=== PATIENT | female | born 1985 | race Caucasian/White ===

== ENCOUNTER 2016-08-29 18:57 | Emergency (ER) | payer OTHER ==
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
[2016-08-29] MEDS ORDERED: CYCLOBENZAPRINE10 M1 PO (22:06)
[2016-08-29] MEDS ORDERED: IBUPROFEN800 M1 PO (22:06)
[2016-08-29 22:12] VITALS: BP 138/72
== END 2016-08-29 22:13 ==
LOC: ERH 18:57
DX: S16.1XXA Strain of muscle, fascia and tendon at neck level, initial encounter (principal); V49.50XA Passenger injured in collision with unspecified motor vehicles in traffic accident, initial encounter
CPT/HCPCS: 72050; 81025; 96372; J1885; J3360

== ENCOUNTER 2017-11-27 17:02 | Emergency (ER) | payer OTHER ==
[~2017-11-27] VITALS: Ht 167.6 cm; Wt 82.6 kg
[~2017-11-27 17:02] MED LIST: CYCLOBENZAPRINE10 M1 PO; IBUPROFEN800 M1 PO
[2017-11-27 17:55] LABS: ABSOLUTE BASOPHIL COUNT 0 /CUMM (0.0-0.2); ABSOLUTE EOSINOPHIL COUNT 0.1 /CUMM (0.0-0.7); ABSOLUTE GRANULOCYTE CT 3.9 /CUMM (1.4-6.5); ABSOLUTE MONOCYTE COUNT 0.4 /CUMM (0.10-0.60); BASOPHIL % 0.7 % (0.0-2.0); EOSINOPHIL % 1.5 % (0-5); GRANULOCYTE % 60.4 % (42.2-75.2); HEMATOCRIT 37.9 % (37-47); MEAN CORPUSCULAR HGB CONC 34.8 G/DL (33.0-37.0); MEAN CORPUSCULAR VOLUME 91.9 FL (81.0-99.0); MEAN PLATELET VOLUME 6.9 FL (7.4-10.4); PLATELET COUNT 310 /CUMM (130-400); RBC DISTRIBUTION WIDTH 13.2 % (11.5-14.5); RED BLOOD CELL CT 4.12 /CUMM (4.20-5.40); WHITE BLOOD CELL COUNT 6.5 /CUMM (4.8-10.8)
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
[2017-11-27] MEDS ORDERED: ESCITALOPRAM OX20 MG PO (21:21)
[2017-11-27] MEDS ORDERED: BUPROPION XL300 M1 PO (21:21)
[2017-11-27] MEDS ORDERED: SUBOXONE 4 MG-1 EACH SL (21:22)
[2017-11-27] MEDS ORDERED: HEARTBURN RELI150 MG PO (21:22)
[2017-11-27 22:37] VITALS: BP 111/67
== END 2017-11-27 23:01 ==
LOC: ERH 17:02
PROVIDERS: Physician Assistant Medical
DX: R10.30 Lower abdominal pain, unspecified (principal)
CPT/HCPCS: 80307; 81003; 81025; 87491; 87591; 96372; J0456; J0696; J2001